=== PATIENT | male | born 1970 | race Caucasian/White ===

== ENCOUNTER 2021-12-22 11:05 | Emergency (ER) | payer OTHER ==
[~2021-12-22] VITALS: Ht 175.3 cm; Wt 99.8 kg
[2021-12-22] MEDS ORDERED: TESSALON PERLE100 MG PO (12:19)
[2021-12-22] MEDS ORDERED: AUGMENTIN 875-1 EACH PO (12:19)
[2021-12-22 12:28] VITALS: BP 133/71
== END 2021-12-22 12:28 | disposition home or self-care (01) ==
LOC: ER 11:05
DX: J01.90 Acute sinusitis, unspecified (principal); Z20.822 Contact with and (suspected) exposure to COVID-19; B96.89 Other specified bacterial agents as the cause of diseases classified elsewhere; J40 Bronchitis, not specified as acute or chronic; F17.210 Nicotine dependence, cigarettes, uncomplicated; Z85.47 Personal history of malignant neoplasm of testis